=== PATIENT | male | born 1985 | race Two or more races ===

== ENCOUNTER 2020-01-04 04:45 | Emergency (ER) | payer BC ==
[~2020-01-04] VITALS: Ht 167.6 cm; Wt 63.5 kg
[2020-01-04] MEDS ORDERED: ABAC1TAB15 PO (05:07)
--- NOTE | 2020-01-04 05:20 | NUR ---
Patient presents to ER for c/o of headache. Patient states he felt a strong headache today and now isn't able to text as fast or "do things as i normally do." Patient states that when he arrived to hospital, his headache went away. Patient is alert and oriented x 4, ambulatory. Speech is clear and is able to move all extremeties. Patient denies pain at this time, pending MD schroeder.
--- NOTE | 2020-01-04 05:30 | NUR ---
Dr. Bernard at bedside for MSE.
--- NOTE | 2020-01-04 06:30 | NUR ---
pt to CT
--- NOTE | 2020-01-04 06:46 | NUR ---
pt returned from CT
--- NOTE | 2020-01-04 07:00 | NUR ---
Per Dr. Bernard patient is stable for discharge. DC instructions given and reviewed with patient. Verbalized understanding. Pt awaiting CT results. Bert in radiology made aware.
--- NOTE | 2020-01-04 07:04 | NUR ---
sbar report given to [facility], made him aware that patient is waiting for radiology reports endorsed DC assessment and depart status.
[2020-01-04 07:50] VITALS: BP 147/90
== END 2020-01-04 07:15 | disposition home or self-care (01) ==
LOC: ER 04:48
DX: R51 Headache (principal); Z21 Asymptomatic human immunodeficiency virus [HIV] infection status
CPT/HCPCS: 70450; A4663